=== PATIENT | male | born 1945 | race Caucasian/White ===

== ENCOUNTER → 2018-05-20 | Outpatient (CLI) | payer MEDICARE ==
[2018-05-20 08:10] LABS: ALT 34 U/L (21-72); AST 27 U/L (17-59); Cholesterol 108 mg/dL (<200); HDL Cholesterol 44 mg/dL (40-60); LDL Cholesterol,Calculated 50 mg/dL (0-99); Triglycerides 70 mg/dL (<150)
== END | disposition home or self-care (01) ==
LOC: LABWHC1 07:40
PROVIDERS: ATTEND Internal Medicine Interventional Cardiology
DX: E78.2 Mixed hyperlipidemia (principal)
CPT/HCPCS: 36415; 80061; 84450; 84460

== ENCOUNTER → 2023-07-16 | Outpatient (CLI) | payer MEDICARE ==
[2023-07-16 13:39] LABS: African American GFR (CKD) 87 (>60 ml/min/1.73 sqM); Blood Urea Nitrogen 24 mg/dL (9-20); Non-African American GFR(CKD) 75 (>60 ml/min/1.73 sqM)
--- NOTE | 2023-07-16 16:32 | CT ---
EXAMINATION TYPE: CT neck chest w con DATE OF EXAM: 07/16/2023 COMPARISON: None HISTORY: squamous cell carcinoma CT DLP: 691.8 mGycm CONTRAST: CT scan of the neck is performed with IV Contrast, patient injected with 100 mL of Isovue 300. Contrast enhanced CT of the neck was performed from the skull base through the lung apices. AIRWAY: The supraglottic, glottic, and subglottic portions of the airway appear patent and free of mass. SALIVARY GLANDS: The submandibular and parotid glands are free of inflammatory process. Intraparotid nodules likely reflect intraparotid lymph nodes. THYROID GLAND: No nodules or masses seen. LYMPH NODES: Multiple enlarged supraclavicular lymph nodes are seen measuring up to 1.3 cm on the lef t and 1.6 cm on the right. Enlarged posterior triangle adenopathy is noted measuring up to 1 cm on th e left and 1 cm on the right. Internal jugular chain adenopathy is seen bilaterally measuring up to 1 .1 cm on the left and 1 cm on the right. There is submandibular adenopathy is noted on the right evaristo uring 1.3 cm and on the left measuring 1.3 cm as well. Intraparotid lymph nodes are suspected bilater ally as well. Submental adenopathy seen measuring 1.4 cm. OTHER: Vascular structures are patent. No significant degenerative change of the cervical spine. N o abscess seen. IMPRESSION: 1. Adenopathy throughout the neck as discussed. EXAMINATION TYPE: CT neck chest w con DATE OF EXAM: 07/16/2023 COMPARISON: HISTORY: squamous cell carcinoma CT DLP: 691.8 mGycm Automated exposure control for dose reduction was used. CONTRAST: CT scan of the chest is performed with IV Contrast, patient injected with 100 mL of Isovue 300. FINDINGS: LUNGS: The lungs are grossly clear, there is no concerning parenchymal mass or nodule identified. T here is no pleural effusion or pneumothorax seen. The tracheobronchial tree is patent. Incidental az ygos lobe and fissure. MEDIASTINUM: Subcentimeter paratracheal lymph node seen. Subcarinal adenopathy measures 1.5 cm. Right tracheobronchial adenopathy measures up to 1.4 cm. Right hilar adenopathy measures 1 cm. No pericard ial effusion is seen. Thoracic aorta is of normal caliber. There is evidence of cardiomegaly. UPPER ABDOMEN: No significant abnormality appreciated. OTHER: Bilateral axillary adenopathy left greater than right. Multiple enlarged lymph nodes seen zoraida aterally. On the left the largest lymph node measures 2.8 cm. On the right the largest lymph node giorgio sures 1.3 cm. IMPRESSION: 1. Axillary and mediastinal adenopathy is mild right hilar adenopathy as discussed.
== END | disposition home or self-care (01) ==
LOC: RADCTMAIN 12:48
PROVIDERS: ATTEND Radiology Radiation Oncology
DX: C44.42 Squamous cell carcinoma of skin of scalp and neck (principal); R59.0 Localized enlarged lymph nodes
CPT/HCPCS: 82565; 84520; 70491; 71260; 36415; Q9967

== ENCOUNTER 2023-08-01 08:56 | Day surgery (SDC) | payer MEDICARE ==
[2023-08-01 10:01] VITALS: TEMP 97.5
[2023-08-01 10:27] VITALS: BP 118/66; PULSE 66; RESP 16
--- NOTE | 2023-08-01 11:25 | US ---
ULTRASOUND GUIDED CORE BIOPSY LEFT NECK MASS: CLINICAL HISTORY: Left neck mass BX/lymphadenopathy FINDINGS: The procedure was explained to the patient. The risks, complications, benefits and alternatives were discussed and any questions were answered. Informed consent was obtained. Patient was placed supin e on the ultrasound table and prepped and draped in the usual sterile fashion. Utilizing a 18 gauge core biopsy needle, three passes were made into the requested left neck mass\lymph node. Patient was stable throughout the procedure. Pathology is pending. All elements of maximal barrier technique were utilized. IMPRESSION: 1. Successful ultrasound guided core biopsy left neck lymphadenopathy\mass.
== END 2023-08-01 10:30 | disposition home or self-care (01) ==
LOC: RADPROMAIN 08:56
PROVIDERS: ATTEND Radiology Radiation Oncology
DX: C91.10 Chronic lymphocytic leukemia of B-cell type not having achieved remission (principal)
CPT/HCPCS: 38505; 76942; 88305; 88341; 88342

== ENCOUNTER → 2023-08-07 | Outpatient (CLI) | payer MEDICARE ==
--- NOTE | 2023-08-10 14:12 | PE ---
EXAMINATION TYPE: PET CT fusion skull to thigh DATE OF EXAM: 08/07/2023 COMPARISON: CT neck 07/16/2023 Prior PET/CT: None HISTORY: Squamous cell carcinoma top of head TECHNIQUE: Following the intravenous administration of 10.8 mCi of F-18 FDG, whole body images are p erformed from the skull base to the midthigh. Images are reviewed on the computer in the coronal, ax ial, and sagittal planes. Reconstructed rotating images are created on independent workstation and r eviewed on the computer. A localization and attenuation correction CT is performed in conjunction w ith the PET scan. DLP: 756.86 mGycm SCAN: Initial Blood glucose: 119 mg/dL Average Mediastinum SUV: 2.58 Average Liver SUV: 2.79 FINDINGS: HEAD and NECK: Uptake is within the right anterolateral vertex, image 9, SUV 4.45. Uptake along the a nterior bridge of the nose, image 44, SUV 5.17. There is mild uptake along the extensive adenopathy within the neck. An example of a more intense lym ph node would include image 84, SUV 4.08. Example uptake within the parotid gland lymph node, image 51, SUV 2.89. NECK: There is some subtle uptake along the right anterior lateral frontal region near the vertex, im age 23, SUV 4.24. Correlate with location of the patient's squamous cell carcinoma. There may be some mild uptake along the anterior bridge of the nose, example image 61, SUV 5.91. No abnormal intracranial uptake identified. There is extensive adenopathy through the neck. These have intermediate uptake. Adenopathy extends b ilaterally into the supraclavicular region. Some uptake within the left axillary lymph nodes are pres ent. An enlarged left axillary lymph node appears more intense measuring 3.7 SUV, example image 109. An intense area of uptake within the left axillary lymph node, image 137, has an SUV of 4.9. Right ax illary adenopathy is also present. THORAX: Shotty lymphadenopathy is within the mediastinum. There is an aortopulmonic window lymph node which is smaller than most lymph nodes with mild uptake, image 114, SUV 2.87. ABDOMEN: Para-aortic and retrocaval adenopathy is present. This is not markedly intense and has minim al intermediate uptake, example image. Aortic lymph node between the aorta and inferior vena cava, im age 89, SUV 3.03 PELVIS: No abnormal uptake OSSEOUS STRUCTURES: No abnormal uptake LOCALIZATION CT: Note is made of degenerative facet changes within the lower lumbar spine degenerativ e changes are noted within the cervical spine. COMPARISON: Findings correlate with the recent CT exam. IMPRESSION: 1. Extensive adenopathy through the bilateral neck regions has intermediate to mildly increased uptak e suspicious for neoplastic process. Given the relatively low intensity, reactive adenopathy is not e ntirely excluded but felt to be less likely. 2. There is a focus of radiotracer within the subcutaneous calvarium right frontal region vertex. Cor relate with location of the patient's squamous cell carcinoma. 3. Bilateral axillary adenopathy with mild uptake. Some adenopathy within the abdomen may be present with mild uptake. Some uptake within mediastinal adenopathy may be present.
== END | disposition home or self-care (01) ==
LOC: RADPETMAIN 06:27
PROVIDERS: ATTEND Radiology Radiation Oncology
DX: C44.42 Squamous cell carcinoma of skin of scalp and neck (principal); R59.0 Localized enlarged lymph nodes
CPT/HCPCS: 78815; A9552

== ENCOUNTER → 2024-10-21 | Outpatient (CLI) | payer MEDICARE ==
--- NOTE | 2024-10-21 17:20 | PE ---
EXAMINATION TYPE: PET CT fusion skull to thigh DATE OF EXAM: 10/21/2024 CLINICAL INDICATION:Male, 79 years old with history of C44.39 Squamous Cell Carcinoma; TECHNIQUE: Following the intravenous administration of 11.07 mCi of F-18 FDG, whole body images are performed from the skull vertex to the midthigh. Images are reviewed on the computer in the coronal , axial, and sagittal planes. Reconstructed rotating images are created on independent workstation a nd reviewed on the computer. A non-contrast CT is performed in conjunction with the PET scan. Gluco se level 102 mg/dL CT DLP: 609.93 mGycm, Automated exposure control for dose reduction was used. COMPARISON: CT 07/16/2023, 06/30/2017, PET/CT 08/07/2023, MRI: 07/01/2017 FINDINGS: Mediastinal SUV mean is 2.2. Hepatic parenchyma SUV mean is 2.6. SKULL BASE AND NECK: Redemonstration of extensive adenopathy throughout the bilateral neck extending into the supraclavicu lar regions. These lymph nodes again demonstrate only mild uptake with a max SUV 4.1 involving a left supraclavicular lymph node, previously 3.9. New left preauricular 1.7 cm ovoid lesion with marked FDG activity with a maximum SUV of 17.3. Redemonstration of anterior inferior parotid region 1.1 cm lesion with now marked FDG activity with a maximum SUV of 18.9. CHEST, MEDIASTINUM, AND HILAR REGION: Similar shotty lymphadenopathy within the mediastinum. Demonstrates a maximum SUV 2.4 involving a lef t paratracheal lymph node. Previously 2.6. Similar bilateral axillary adenopathy. Demonstrates a maximum SUV of 4.4 involving a left axial lymph node. Previously 4.9. ABDOMEN AND PELVIS: Similar pericaval and periaortic lymphadenopathy with similar bilateral iliac chain adenopathy. Demon strates a maximum SUV of 3.8 involving an anterior periaortic lymph node. Previously 3.7. A left kehinde c chain lymph node demonstrates maximum SUV of 4.5, previously 4.9. MUSCULOSKELETAL STRUCTURES: There is focal radiotracer uptake at the right anterior eighth costochondral junction without abnorma lity on CT. This demonstrates a maximum SUV of 4.1. No other suspicious osseous uptake. OTHER CT: Stable posterior lower neck superficial 1.6 cm cystic lesion consistent with a sebaceous cy st. Multilevel degenerative changes of the visualized spine. [id number] coronary arterial calci fications. Elevation of the right hemidiaphragm. Incidental azygous fissure. Bilateral lower lobe dep endent suspect atelectasis. Mild atherosclerotic calcification of the aorta and its branches. Small f at filled periumbilical hernia. Prostatomegaly measuring up to 5.4 cm. Degenerative changes of bilate ral SI joints. IMPRESSION: 1. Development of 2 markedly FDG avid lesions within the left preauricular region and inferior anter ior left parotid gland region. The left parotid gland lesion was present on prior exam but did not de monstrate significant FDG activity. 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 Recommend further evaluation with ultrasound and possible tissue sampli ng. 2. Overall similar extensive adenopathy from prior PET/CT with only mild radiotracer uptake. 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 Correlate with previous biopsy results. [facility], , 10/21/2024 5:18 PM
== END | disposition home or self-care (01) ==
LOC: RADPETMAIN 08:53
PROVIDERS: ATTEND Internal Medicine Hematology & Oncology
DX: C44.390 Other specified malignant neoplasm of skin of unspecified parts of face (principal); R59.9 Enlarged lymph nodes, unspecified; K42.9 Umbilical hernia without obstruction or gangrene; I70.0 Atherosclerosis of aorta; R59.1 Generalized enlarged lymph nodes
CPT/HCPCS: 78815; A9552